=== PATIENT | female | born 1960 | race African-American/Black ===

== ENCOUNTER 2016-11-06 08:53 | Day surgery (SDC) | payer OTHER ==
[2016-11-05 15:51] VITALS: BMI 34.9
[~2016-11-06 08:53] MED LIST: BUPIVACAINE HCL/PF 0.5% (5MG/ML) 10 ML VIAL IJ ONE
[2016-11-06] MEDS ORDERED: SUCCINYLCHOLINE CHLORIDE 200 MG/10 ML VIAL ONE (09:35)
[2016-11-06] MEDS ORDERED: PROPOFOL 20 ML ONE ×2 (09:35)
[2016-11-06] MEDS ORDERED: MIDAZOLAM HCL 2 MG/2 ML SINGLE DOSE VIAL ONE (09:36)
[2016-11-06] MEDS ORDERED: ROCURONIUM BROMIDE 50 MG/5 ML VIAL ONE ×2 (09:36→11:15)
[2016-11-06] MEDS ORDERED: LIDOCAINE HCL/PF 2% SDV 5ML VIAL ONE (09:37)
--- NOTE | 2016-11-06 10:03 | HP ---
History & Physical Update - History History: No Change - Physical Physical: No Change - Assessment Assessment: No Change - Plan Plan: No Change
[2016-11-06] MEDS ORDERED: ceFAZolin SODIUM 1 GM VIAL ONE (10:41)
[2016-11-06] MEDS ORDERED: ceFAZolin SODIUM 1 GM VIAL IVPB ONE (10:47)
[2016-11-06] MEDS ORDERED: ePHEDrine SULFATE 50 MG/1 ML AMPULE ONE (11:00)
[2016-11-06] MEDS ORDERED: GLYCOPYRROLATE 0.2 MG/1 ML VIAL ONE ×2 (11:02→13:06)
[2016-11-06] MEDS ORDERED: DEXAMETHASONE SOD PHOSPHATE 4 MG/1 ML VIAL ONE (11:13)
[2016-11-06] MEDS ORDERED: BUPIVACAINE HCL/PF 0.5% (5MG/ML) 10 ML VIAL IJ ONE (12:45)
[2016-11-06] MEDS ORDERED: NEOSTIGMINE METHYLSULFATE 0.5 MG/ML - 10 ML MDV ONE (13:04)
[2016-11-06] MEDS ORDERED: KETOROLAC TROMETHAMINE 30 MG/1 ML VIAL ONE (13:06)
--- NOTE | 2016-11-06 13:34 | OP ---
Operative Note - Note: Operative Date: 11/06/16 Pre-Operative Diagnosis: Multiple incisional hernias (2) Operation: Robotic PATY, multiple incisional hernia repair with mesh Findings: umbilical hernia and epigastric incisional hernia with Citizen [place] cheese appearance Post-Operative Diagnosis: Other (dense intraabdominal adhesions) Surgeon: Brian Calvert Cricket Coach: Jody Jung Anesthesia: General Operative Report Dictated: Yes
[2016-11-06] MEDS ORDERED: ONDANSETRON 4 MG/2 ML VIAL IVPB ONE (13:35)
--- NOTE | 2016-11-06 13:49 | SURG ---
Surgery Sand Slinger Operator Note Sand Slinger Operator: Jody Jung PA-C Date of Service: 11/06/16 Diagnosis: Multiple incisional hernias (2) Procedure: Robotic PATY, multiple incisional hernia repair with mesh I was present for the entirety of the operative procedure. For further detail, please refer to operative report. Visit type - Case Type Case Type: Scheduled Admission - Emergency Emergency Visit: No - New patient This patient is new to me today: Yes Date on this admission: 11/06/16 - Critical Care Critical Care patient: No
[2016-11-06] MEDS ORDERED: ONDANSETRON 4 MG/2 ML VIAL ONE (13:57)
[2016-11-06] MEDS ORDERED: PROMETHAZINE HCL 25 MG/1 ML VIAL IVPUSH PRN (14:29)
[2016-11-06] MEDS ORDERED: ACETAMINOPHEN 1000 MG/100 ML VIAL (NON FORMULARY) IVPB ONE ×2 (14:29→14:50)
[2016-11-06] MEDS ORDERED: oxyCODONE HCL 5 MG TABLET PO PRN ×2 (14:29→19:22)
[2016-11-06] MEDS ORDERED: ONDANSETRON 4 MG/2 ML VIAL IVPUSH PRN (14:29)
[2016-11-06] MEDS ORDERED: LACTATED RINGERS SOLUTION 1,000 ML IV SCH ×2 (14:30→19:30)
[2016-11-06] MEDS ORDERED: PROMETHAZINE HCL 25 MG/1 ML VIAL IVPB ONE (14:35)
[2016-11-06] MEDS ORDERED: oxyCODONE HCL 5 MG TABLET ONE (17:30)
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
[2016-11-06] MEDS ORDERED: PATIENT'S OWN MEDICATION (NON-FORMULARY) (Olopatadine Hcl [Pataday] 2.5 ML) OP PRN (19:24)
[2016-11-06] MEDS: ACETAMINOPHEN 325 MG TABLET (FP) PO PRN (20:34)
[2016-11-06] MEDS: GABAPENTIN 300 MG CAPSULE (FP) PO SCH (21:52)
[2016-11-06] MEDS: INSULIN SLIDING SCALE (NOVOLOG) 1 VIAL SQ SCH (21:53)
[2016-11-06] MEDS ORDERED: ATORVASTATIN CA 40 MG TABLET (FP) PO SCH (22:00)
[2016-11-07] MEDS: oxyCODONE HCL 5 MG TABLET PO PRN ×2 (01:11→06:30)
[2016-11-07] MEDS: ACETAMINOPHEN 325 MG TABLET (FP) PO PRN ×2 (01:12→06:30)
[2016-11-07] MEDS: INSULIN SLIDING SCALE (NOVOLOG) 1 VIAL SQ SCH (06:29)
[2016-11-07] MEDS: GABAPENTIN 300 MG CAPSULE (FP) PO SCH (06:29)
[2016-11-07] MEDS ORDERED: metFORMIN HCL 500 MG TABLET (FP) PO SCH (07:00)
[2016-11-07] MEDS ORDERED: glyBURIDE 2.5 MG TABLET (FP) PO SCH (07:00)
[2016-11-07 07:11] VITALS: BP 119/64; PULSE 66; TEMP 97.5
--- NOTE | 2016-11-07 08:39 | PN ---
Progress Note (short form) - Note Progress Note: POD #1 s/p Robotic PATY, multiple incisional hernia repair with mesh. Pt admitted to satelite status due to case ending late and pain management. This morning found pt sitting on edge of bed and ready to go home. States she feels good. Pain managed well via prn meds. She's oob and ambulates with a cane. Voiding spontaneously. Wearing her abd binder as instructed. Passing flatus. Tolerating PO diet. AVSS. Afebrile. Gen: alert. nad. Pulm: cta b/l anteriorly Cor: rrr Abd: obese. all ports intact. no hematoma. Problem List - Problems (1) Incisional hernia Assessment/Plan: POD #1 s/p Robotic PATY, multiple incisional hernia repair with mesh Narcotic script escribed to pt's pharmacy of choice AFTER checking [facility]. Pt to f/u with Dr. Calvert in 7-10 days. Cleared for dc home. Code(s): K43.2 - INCISIONAL HERNIA WITHOUT OBSTRUCTION OR GANGRENE
[2016-11-07] MEDS ORDERED: sitaGLIPtin PHOSPHATE 100 MG TABLET (FP) PO SCH (10:00)
[2016-11-07] MEDS ORDERED: amLODIPine BESYLATE 5 MG TABLET (FP) PO SCH (10:00)
[2016-11-07] MEDS ORDERED: PANTOPRAZOLE 40 MG TABLET (FP) PO SCH (10:00)
[2016-11-07] MEDS ORDERED: HYDROCHLOROTHIAZIDE 25 MG TABLET (FP) PO SCH (10:00)
[2016-11-07] MEDS ORDERED: LOSARTAN POTASSIUM 25 MG TABLET PO SCH (10:00)
[2016-11-07] MEDS ORDERED: METFORMIN HCL PO SCH (10:00)
[2016-11-07] MEDS ORDERED: VITAMIN B COMPLEX W/C COMBO TABLET (FP) PO SCH (10:00)
[2016-11-07] MEDS ORDERED: [UNRECOGNIZED DRUG - OTHER] PO SCH (10:00)
[2016-11-07] MEDS ORDERED: GLYBURIDE PO SCH (10:00)
[2016-11-07] MEDS ORDERED: INSULIN GLARGINE HUM REC ANLOG 55 UNIT SQ SCH (10:00)
== END 2016-11-07 09:21 | disposition home or self-care (01) ==
LOC: JASU-SURG 08:53 → J8W 17:55 → JASU-SURG 11-07 09:21
PROVIDERS: ATTEND Surgery
PROC: 8E0W4CZ Robotic Assisted Procedure of Trunk Region, Percutaneous Endoscopic Approach (ICD-10-PCS; 2016-11-06)
PROC: 0WUF4JZ Supplement Abdominal Wall with Synthetic Substitute, Percutaneous Endoscopic Approach (ICD-10-PCS; principal; 2016-11-06 11:00)
DX: K43.2 Incisional hernia without obstruction or gangrene (principal)
CPT/HCPCS: 49654; S2900; 94760

== ENCOUNTER 2016-11-27 10:10 | Emergency (ER) | payer OTHER ==
[2016-11-27 10:19] VITALS: TEMP 97.7; BMI 34.9
--- NOTE | 2016-11-27 14:00 | PDOC ---
History of Present Illness - History of Present Illness Initial Comments: 11/27/16 14:18 The patient is a 56 year old female, with a significant past medical history of hypertension, hyperlipidemia, diabetes, who presents to the emergency department for intermittent abdominal pain and vomiting s/p robotic laparoscopic multiple incisional hernia with mesh on 11/06/16. She states she has had increased episodes of emesis for the past 4 days. She reports 4 episodes of emesis since being in the ED today. She denies any blood in her emesis. She reports her last normal BM was at 5AM this morning. She denies hematochezia. She denies chest pain, shortness of breath, headache and dizziness. She denies fever, diarrhea and constipation. She denies dysuria, frequency, urgency and hematuria. Allergies: enapril, metoprolol, pneumococcal vaccine Past surgical history: cholecystectomy, hernia repairs (11/06/16) Social history: denies toxic habits. Lives home with Nurse aide. PCP - Dr. Parish Godinez Surgeon - Dr. Brian Calvert <Merry Landon - Last Filed: 11/27/16 14:18> - General History Source: Patient, Old Records Exam Limitations: No Limitations <Molly Ramirez - Last Filed: 11/29/16 01:32> - General Chief Complaint: Pain Stated Complaint: VOMITING, DIZZINESS Time Seen by Provider: 11/27/16 13:32 Past History <Merry Landon - Last Filed: 11/27/16 14:18> - Past Medical History Anemia: Yes (in past) Asthma: No Cancer: No Cardiac Disorders: No CVA: No COPD: No CHF: No Dementia: No Diabetes: Yes (type 1 2007) GI Disorders: Yes (reflux) Disorders: No HTN: Yes Hypercholesterolemia: Yes Seizures: No Thyroid Disease: No - Surgical History Abdominal Surgery: Yes (Hernia Repair) Appendectomy: Yes Cardiac Surgery: No Cholecystectomy: Yes Lung Surgery: No Neurologic Surgery: No Orthopedic Surgery: No - Psycho/Social/Smoking Cessation Hx Suicidal Ideation: No Smoking History: Never smoked Have you smoked in the past 12 months: No Information on smoking cessation initiated: No Hx Alcohol Use: No Drug/Substance Use Hx: No Substance Use Type: None Hx Substance Use Treatment: No <Molly Ramirez - Last Filed: 11/29/16 01:32> - Past Medical History Allergies/Adverse Reactions: Allergies Allergy/AdvReac Type Severity Reaction Status Date / Time enalapril Allergy Hives Verified 11/27/16 10:19 metoprolol Allergy Hives Verified 11/27/16 10:19 pneumococcal vaccine Allergy Hives Verified 11/27/16 10:19 tetanus and diphtheria Allergy Hives Verified 11/27/16 10:19 toxoids Home Medications: Ambulatory Orders Amlodipine Besylate [Norvasc -] 5 mg PO DAILY 05/14/16 Atorvastatin Ca [Lipitor] 40 mg PO HS 05/14/16 Gabapentin 800 mg PO TID 05/14/16 Glyburide/Metformin HCl [Glucovance 2.5-500 mg Tablet] 1 each PO BID 05/14/16 Hydrochlorothiazide [Hctz -] 25 mg PO DAILY 05/14/16 Losartan Potassium [Cozaar -] 25 mg PO DAILY 05/14/16 Olopatadine HCl [Pataday] 2.5 ml OP DAILY PRN 05/14/16 Omeprazole 40 mg PO DAILY 05/14/16 Sitagliptin Phosphate [Januvia] 100 mg PO DAILY 05/14/16 Vitamin B Complex [B Complex] 1 tab PO DAILY 05/14/16 Review of Systems - Review of Systems Able to Perform ROS?: Yes Comments:: 11/27/16 13:59 GENERAL/CONSTITUTIONAL: (+) Chills. No fever. No weakness. HEAD, EYES, EARS, NOSE AND THROAT: No change in vision. No ear pain or discharge. No sore throat. CARDIOVASCULAR: No chest pain or shortness of breath. RESPIRATORY: No cough, wheezing, or hemoptysis. GASTROINTESTINAL: (+) abdominal pain, nausea, vomiting, No diarrhea or constipation. GENITOURINARY: No dysuria, frequency, or change in urination. MUSCULOSKELETAL: No joint or muscle swelling or pain. No neck or back pain. SKIN: No rash NEUROLOGIC: No headache, vertigo, loss of consciousness, or change in strength/ sensation. ENDOCRINE: No increased thirst. No abnormal weight change. HEMATOLOGIC/LYMPHATIC: No anemia, easy bleeding, or history of blood clots. ALLERGIC/IMMUNOLOGIC: No hives or skin allergy. <Merry Landon - Last Filed: 11/27/16 14:18> *Physical Exam - Vital Signs Last Vital Signs Temp Pulse Resp BP Pulse Ox 97.7 F 93 H 18 160/95 98 11/27/16 10:15 11/27/16 10:15 11/27/16 10:15 11/27/16 10:15 11/27/16 10:15 - Physical Exam Comments: 11/27/16 14:01 GENERAL: Awake, alert, and fully oriented, in no acute distress HEAD: No signs of trauma EYES: PERRLA, EOMI, sclera anicteric, conjunctiva clear ENT: Auricles normal inspection, hearing grossly normal, nares patent, oropharynx clear without exudates. Moist mucosa NECK: Normal ROM, supple, no lymphadenopathy, JVD, or masses LUNGS: Breath sounds equal, clear to auscultation bilaterally. No wheezes, and no crackles HEART: Regular rate and rhythm, normal S1 and S2, no murmurs, rubs or gallops ABDOMEN: (+) Obese. mild diffuse tenderness to palpation worse in RUQ and RLQ. Soft, normoactive bowel sounds. No guarding, no rebound. No masses EXTREMITIES: Normal range of motion, no edema. No clubbing or cyanosis. No cords, erythema, or tenderness NEUROLOGICAL: Cranial nerves II through XII grossly intact. Normal speech, normal gait SKIN: Warm, Dry, normal turgor, no rashes or lesions noted. <Merry Landon - Last Filed: 11/27/16 14:18> - Vital Signs Last Vital Signs Temp Pulse Resp BP Pulse Ox 97.7 F 93 H 18 160/95 98 11/27/16 10:15 11/27/16 10:15 11/27/16 10:15 11/27/16 10:15 11/27/16 10:15 <Molly Ramirez - Last Filed: 11/29/16 01:32> ED Treatment Course - LABORATORY CBC & Chemistry Diagram: 11/27/16 14:15 11/27/16 18:49 <Molly Ramirez - Last Filed: 11/29/16 01:32> Medical Decision Making - Medical Decision Making 11/27/16 14:11 56-year-old female with history of hypertension, diabetes, hyperlipidemia and multiple abdominal surgeries for hernia repairs presents to the emergency Department with complaints of diffuse abdominal pain as well as nausea and vomiting since yesterday. Differential diagnosis includes but is not limited to : Small bowel obstruction, pancreatitis, gallbladder disease, gastritis, dehydration, electrolyte abnormality, toxic/metabolic derangement, DKA. Plan: 1. Labs 2. EKG 3. IV fluids for hydration 4. Antiemetics 5. Pain management 6. Abdominal imaging 7. Observe and reevaluate <Molly Ramirez - Last Filed: 11/29/16 01:32> *DC/Admit/Observation/Transfer - Attestations Scribe Attestion: 11/27/16 14:05 Documentation prepared by Merry Landon, acting as medical records coder for Molly Ramirez MD, <Merry Landon - Last Filed: 11/27/16 14:18> - Discharge Dispostion Admit: No - Attestations Physician Attestion: 11/27/16 14:12 I, Dr. Molly Ramirez, attest that the scribes documentation that appears above has been prepared under my direction and personally reviewed by me in its entirety. I confirmed that the note above accurately reflects all work, treatment, procedures, and medical decision-making performed by me. <Molly Ramirez - Last Filed: 11/29/16 01:32> Diagnosis at time of Disposition: Hematoma of rectus sheath Qualifiers: Encounter type: initial encounter Qualified Code(s): S30.1XXA - Contusion of abdominal wall, initial encounter - Discharge Dispostion Disposition: HOME Condition at time of disposition: Stable - Referrals Referrals: Ralph Godinez [Primary Care Provider] - Brian Calvert MD [Staff Physician] - - Patient Instructions Printed Discharge Instructions: DI for Abdominal Pain-Adult, DI for Hematoma ( Bruise) Additional Instructions: Please call Dr Brian Calvert's office tomorrow for followup visit
[2016-11-27] MEDS ORDERED: SODIUM CHLORIDE 1,000 ML IV STA (14:01)
[2016-11-27] MEDS ORDERED: ONDANSETRON 4 MG/2 ML VIAL IVPUSH ONE (14:01)
[2016-11-27] MEDS ORDERED: ONDANSETRON 4 MG/2 ML VIAL ONE (14:08)
[2016-11-27 14:25] LABS: BASOPHIL 1.3 % (0-2.0); EOSINOPHIL 2.2 % (0-4.5); MCH 24.5 pg (25.7-33.7); MCHC 31.7 g/dl (32.0-36.0); MEAN CELL VOLUME 77.4 fl (80-96); MEAN PLT VOLUME 7.2 fl (7.5-11.1); NEUTROPHILS 48.3 % (42.8-82.8); PLATELET COUNT 408 K/MM3 (134-434); RDW 16.7 % (11.6-15.6); WHITE BLOOD COUNT 9.5 K/mm3 (4.0-10.0)
[2016-11-27 14:35] LABS: URINE APPEARANCE CLEAR; URINE BILIRUBIN NEGATIVE (NEGATIVE); URINE BLOOD NEGATIVE (NEGATIVE); URINE COLOR LTYELLOW; URINE GLUCOSE (UA) NEGATIVE (NEGATIVE); URINE KETONE NEGATIVE (NEGATIVE); URINE LEUK ESTERASE NEGATIVE (NEGATIVE); URINE NITRITE NEGATIVE (NEGATIVE); URINE UROBILINOGEN NEGATIVE E.U./dl (0.2-1.0)
[2016-11-27 14:36] LABS: URINE PROTEIN 1+ (NEGATIVE)
[2016-11-27 14:40] LABS: URINE RBC <1 /hpf (0-3); URINE WBC 1 /hpf (3-5)
--- NOTE | 2016-11-27 17:02 | EKG ---
Test Reason : Blood Pressure : / mmHG Vent. Rate : 070 BPM Atrial Rate : 070 BPM P-R Int : 188 ms QRS Dur : 080 ms QT Int : 410 ms P-R-T Axes : 026 -31 006 degrees QTc Int : 442 ms NORMAL SINUS RHYTHM LEFT AXIS DEVIATION ABNORMAL ECG WHEN COMPARED WITH ECG OF 01-MAY-2016 16:18, T WAVE VARIATION Confirmed by JUAN CORTES MD ([id number]) on 11/27/2016 5:01:40 PM Referred By: Confirmed By:JUAN CORTES MD
[2016-11-27 19:27] LABS: ALBUMIN 3.7 g/dl (3.4-5.0); ANION GAP 12 (8-16); CALCIUM 9.1 mg/dL (8.5-10.1); CO2 25 mmol/L (21-32); COCKROFT - GAULT 102.4505; CREATININE 0.9 mg/dL (0.55-1.02); MAGNESIUM 1.8 mg/dL (1.8-2.4); PHOSPHOROUS 3.4 mg/dL (2.5-4.9); SGOT/AST 25 U/L (15-37); SGPT/ALT 33 U/L (12-78)
[2016-11-27 19:29] LABS: ALK PHOS 86 U/L (45-117); BILIRUBIN,TOTAL 0.2 mg/dL (0.2-1.0); TOT PROT 7.4 g/dl (6.4-8.2); TROPONIN I < 0.02 ng/ml (0.00-0.05)
[2016-11-27 19:35] LABS: GLUCOSE,RANDOM 48 mg/dL (74-106)
[2016-11-27] MEDS ORDERED: DEXTROSE 50%-WATER - 25 GM/50 ML VIAL ONE (19:38)
--- NOTE | 2016-11-27 19:42 | PDOC ---
*Physical Exam - Vital Signs Last Vital Signs Temp Pulse Resp BP Pulse Ox 97.7 F 93 H 18 160/95 98 11/27/16 10:15 11/27/16 10:15 11/27/16 10:15 11/27/16 10:15 11/27/16 10:15 ED Treatment Course - LABORATORY CBC & Chemistry Diagram: 11/27/16 14:15 11/27/16 18:49 - ADDITIONAL ORDERS Additional order review: Laboratory Results 11/27/16 11/27/16 18:49 14:21 Sodium 142 Potassium 3.9 Chloride 105 Carbon Dioxide 25 Anion Gap 12 BUN 10 D Creatinine 0.9 Creat Clearance w eGFR > 60 Random Glucose 48 L* D Calcium 9.1 Phosphorus 3.4 Magnesium 1.8 Total Bilirubin 0.2 D AST 25 ALT 33 D Alkaline Phosphatase 86 Creatine Kinase 132 Troponin I < 0.02 Total Protein 7.4 Albumin 3.7 Lipase 197 Urine Color Ltyellow Urine Appearance Clear Urine pH 5.0 Ur Specific [place] 1.015 Urine Protein 1+ H Urine Glucose (UA) Negative Urine Ketones Negative Urine Blood Negative Urine Nitrite Negative Urine Bilirubin Negative Urine Urobilinogen Negative Ur Leukocyte Esterase Negative Urine RBC <1 Urine WBC 1 Ur Epithelial Cells Rare 11/27/16 14:15 RBC 4.55 MCV 77.4 L MCHC 31.7 L RDW 16.7 H MPV 7.2 L Neutrophils % 48.3 Lymphocytes % 43.0 H D Monocytes % 5.2 Eosinophils % 2.2 Basophils % 1.3 - Medications Given in the ED: ED Medications Discontinued Medications Generic Name Dose Route Start Last Admin Trade Name Freq PRN Reason Stop Dose Admin Sodium Chloride 1,000 mls @ 1,000 mls/hr 11/27/16 14:01 11/27/16 14:16 Normal Saline - IV 11/27/16 15:00 1,000 mls/hr ASDIR STA Administration Ondansetron HCl 4 mg 11/27/16 14:01 11/27/16 14:16 Zofran Injection IVPUSH 11/27/16 14:02 4 mg ONCE ONE Administration Medical Decision Making - Medical Decision Making 11/27/16 19:41 I reviewed her labs. It is noted her glucose is 48, although she is conversant and alert. She will be given some orange juice before she goes home CAT scan of abdomen and pelvis did show an abdominal rectus sheath hematoma. There was no evidence of fluid collection, no abscesses, no small bowel obstruction Case is discussed with the patient's surgeon, Dr. Brian Calvert who see the patient in his office later this week. He recommended patient go home Urinalysis is negative -Electrolytes are within normal limits. Liver function tests essentially unremarkable Impression rectus sheath hematoma following surgery 11/28/16 02:51 *DC/Admit/Observation/Transfer Diagnosis at time of Disposition: Hematoma of rectus sheath Qualifiers: Encounter type: initial encounter Qualified Code(s): S30.1XXA - Contusion of abdominal wall, initial encounter - Discharge Dispostion Disposition: HOME Condition at time of disposition: Stable - Referrals Referrals: Ralph Godinez [Primary Care Provider] - Brian Calvert MD [Staff Physician] - - Patient Instructions Printed Discharge Instructions: DI for Hematoma (Bruise), DI for Abdominal Pain -Adult Additional Instructions: Please call Dr Brian Calvert's office tomorrow for followup visit - Post Discharge Activity
[2016-11-27] MEDS ORDERED: ACETAMINOPHEN 500 MG TABLET (FP) PO ONE (20:38)
[2016-11-27 20:40] VITALS: BP 156/90; PULSE 78
[2016-11-27] MEDS ORDERED: ACETAMINOPHEN 325 MG TABLET (FP) ONE (20:40)
== END 2016-11-27 20:46 | disposition home or self-care (01) ==
LOC: JER 10:10
PROC: 3E033GC Introduction of Other Therapeutic Substance into Peripheral Vein, Percutaneous Approach (ICD-10-PCS; principal; 2016-11-27)
DX: S30.1XXA Contusion of abdominal wall, initial encounter (principal); Z98.890 Other specified postprocedural states; I10 Essential (primary) hypertension; E10.9 Type 1 diabetes mellitus without complications; Z79.4 Long term (current) use of insulin; E78.5 Hyperlipidemia, unspecified; E78.00 Pure hypercholesterolemia, unspecified; K21.9 Gastro-esophageal reflux disease without esophagitis
CPT/HCPCS: 36415; 71010-TC; 74176-TC; 80053; 81003; 81015; 82550; 83690; 83735; 84100; 84484; 85025; 93005; 93010; 96374; 99284-25

== ENCOUNTER 2017-09-30 05:40 | Day surgery (SDC) | payer OTHER ==
[2017-09-16 14:21] VITALS: BMI 34.9
[~2017-09-30 05:40] MED LIST changes: +BACITRACIN 15 GM TUBE TOPICAL OINTMENT TP ONE; -BUPIVACAINE HCL/PF 0.5% (5MG/ML) 10 ML VIAL IJ ONE; +BUPIVACAINE HCL/PF 0.5% (5MG/ML) 10 ML VIAL NR ONE
[2017-09-30] MEDS ORDERED: BUPIVACAINE HCL/PF 0.5% (5MG/ML) 10 ML VIAL ONE (07:18)
[2017-09-30] MEDS ORDERED: THROMBIN (BOVINE) 5,000 UNIT VIAL TP ONE ×2 (07:18→09:04)
[2017-09-30] MEDS ORDERED: MIDAZOLAM HCL 2 MG/2 ML SINGLE DOSE VIAL ONE (08:06)
[2017-09-30] MEDS ORDERED: PROMETHAZINE HCL 25 MG/1 ML VIAL IVPUSH PRN (08:13)
[2017-09-30] MEDS ORDERED: ONDANSETRON 4 MG/2 ML VIAL IVPUSH PRN (08:13)
[2017-09-30] MEDS ORDERED: oxyCODONE HCL 5 MG TABLET PO PRN (08:13)
[2017-09-30] MEDS ORDERED: LACTATED RINGERS SOLUTION 1,000 ML IV SCH (08:15)
[2017-09-30] MEDS ORDERED: SUCCINYLCHOLINE CHLORIDE 200 MG/10 ML VIAL ONE (08:20)
[2017-09-30] MEDS ORDERED: ROCURONIUM BROMIDE 50 MG/5 ML VIAL ONE (08:20)
[2017-09-30] MEDS ORDERED: PROPOFOL 20 ML ONE ×2 (08:20)
[2017-09-30] MEDS ORDERED: ceFAZolin SODIUM 1 GM VIAL IVPB ONE (08:30)
[2017-09-30] MEDS ORDERED: BACITRACIN 50,000 UNITS VIAL TP ONE (09:04)
[2017-09-30] MEDS ORDERED: ePHEDrine SULFATE 50 MG/1 ML AMPULE ONE (09:26)
[2017-09-30] MEDS ORDERED: BACITRACIN 15 GM TUBE TOPICAL OINTMENT ONE (10:02)
[2017-09-30] MEDS ORDERED: NEOSTIGMINE METHYLSULFATE 0.5 MG/ML - 10 ML MDV ONE (10:11)
[2017-09-30] MEDS ORDERED: BUPIVACAINE HCL/PF 0.5% (5MG/ML) 10 ML VIAL NR ONE (10:15)
[2017-09-30] MEDS ORDERED: BENZOIN/ALOE VERA/STORAX/TOLU 58 ML BOTTLE ONE (10:22)
[2017-09-30] MEDS ORDERED: BACITRACIN 15 GM TUBE TOPICAL OINTMENT TP ONE (10:25)
--- NOTE | 2017-09-30 10:33 | OP ---
Operative Note - Note: Operative Date: 09/30/17 Pre-Operative Diagnosis: chronic lumbar radiculopathy R > L Operation: R partial T 10 laminectomy for placement of epidural paddle electrode from [employer] and non--rechargeable generator in R buttock region Findings: mild epidural fibrosis Implants: Macias 60 mm paddle electroide Penta; Proclaim 7 Elite generator Post-Operative Diagnosis: Same as Pre-op Surgeon: Abdi Crocker Anesthesiologist/JAVA TECHNICAL MANAGER: Bhumika Werner MD Anesthesia: General Estimated Blood Loss (mls): 25 Operative Report Dictated: Yes
[2017-09-30] MEDS ORDERED: HYDROmorphone HCL CARPU-JECT 1 MG/1 ML DISP.SYRIN IVPUSH PRN (10:36)
[2017-09-30] MEDS ORDERED: D5-1/2NS+20 MEQ KCL - 20 MEQ/1,000 ML INFUS.BAG IV SCH (10:45)
--- NOTE | 2017-09-30 11:07 | PN ---
Progress Note (short form) - Note Progress Note: NEUROSURGERY In PACU AF, VSS; O2 sat 100% Some incisional pain mostly right sided as expected PE: A/A CV- RR; Lungs- CTA; Abd- obese, benign; Ext- no sign of DVT CN- intact; Motor- 4+-5 B UE/LE; Sensation- intact LT; DTR- hyporeflexia B Dressings C/D/I Pain meds prn Plan d/c hoe later SCS preliminary programs in place D/C, wound, and f/u instructions given
[2017-09-30] MEDS ORDERED: oxyCODONE HCL 5 MG TABLET ONE (11:15)
[2017-09-30] MEDS ORDERED: ONDANSETRON 4 MG/2 ML VIAL ONE (11:24)
[2017-09-30 11:47] VITALS: TEMP 97.9
[2017-09-30 14:20] VITALS: BP 147/72; PULSE 80
--- NOTE | 2017-10-01 12:03 | OP ---
DATE OF OPERATION: 09/30/2017 ATTENDING SURGEON: Abdi Crocker MD SALON SALES CONSULTANT: Epi Crisostomo MD ANESTHESIA: General endotracheal. ANESTHESIOLOGIST: Bhumika Werner MD PROCEDURE: 1. Right T10 and partial laminectomy for placement of epidural paddle electrode (26849) (Macias Penta 4 x 20 electrode). 2. Placement of generator in the right buttock (00890) (Macias Proclaim 7 Elite non-rechargeable generator). 3. Intraoperative programming first hour (25657). 4. Intraoperative fluoroscopy for localization and placement of epidural paddle electrode (28868-60). ESTIMATED BLOOD LOSS: Was 25 mL. FINDINGS: Mild epidural fibrosis. INDICATIONS: The patient is a 57-year-old female with a history of lumbar laminectomy L4-5 and L5-S1 on the left who complains of increasing right-sided lumbar radiculopathy. She has undergone extensive conservative treatment without significant relief of her symptoms. She underwent a permanent spinal cord stimulator implant, which gave her greater than 50% of reduction in her overall pain. She is here for her permanent spinal cord stimulator implant. The risks of procedure include but are not limited to bleeding, infection, dural tear with CSF leak, neurological injury, increased thromboembolic risk, and other risks of general anesthesia as well as implant migration requiring revision. The patient understands the indication for the procedure. After risks, benefits, and alternative treatments for her condition were discussed, she wished to proceed. No guarantees given for a favorable outcome. PROCEDURE IN DETAIL: After the patient was taken to the operating room, she was placed in supine position. After general anesthesia was induced and appropriate monitoring lines were placed, she was turned in a prone position on a Justin frame. All pressure points were checked and padded. Right buttock region was cleaned with alcohol and prepped with Betadine. Fluoroscope was brought into the AP position and planned incision in the thoracic spine at the bottom of T10. Approximately a 2- inch incision was planned. After the patient was sterilely prepped and draped, the skin incision was opened with a No. 10 blade in the lower thoracic region. Subperiosteal dissection was carried out with periosteal elevator and monopolar electrocautery. A fairly deep exposure was encountered. A self-retaining retractor was inserted. Fluoroscope was sterilely draped and brought into the AP position and localized the exposure of T10 lamina. At this point, partial laminectomy in the central spinal canal as well as a right-sided partial T10 laminectomy was carried out with high -speed pneumatic drill, angled curette, and Kerrison rongeur. The underlying ligamentum flavum was dissected free with angled curette with the help of Kerrison rongeur. Dental tool was used to palpate the epidural space. A mild degree of epidural fibrosis was encountered. Loupe magnification was utilized. An BioCatch Spine Penta paddle electrode was placed from a central/right-sided approach with slowly advancing the top of the electrode towards the midline near T7-8 disk space. The electrode was placed more right-sided as the patient has predominantly right-sided symptoms. The wound was irrigated with antibiotic-containing irrigation. There was no CSF leak at any one point in time. At this point, 2 anchors were applied, and they were secured with 2-0 silk sutures. The right buttock incision was then opened at this time , and the pocket was created with blunt dissection. Wounds were irrigated with antibiotic-containing irrigation. The trocar was used to create a path for thoracic and lumbar through the right buttock incision with a plastic straw to pass the leads. It was then cleaned and connected to the permanent nonrechargeable Proclaim 7 Elite non-rechargeable generator. The torque wrench was used to secure the leads. Impedance was checked repeatedly and resulted in 500-1000 range. The excess wire was then coiled behind the generator and tucked into the right buttock incision after it was irrigated with antibiotic-containing irrigation. At this point, fascia was closed with 0 Vicryl suture and subcutaneous fascia was closed with 3-0 Vicryl suture at both incisions. The skin was closed with 4-0 Vicryl running subcuticular suture. Steri-Strips and a sterile occlusive dressing were applied. The patient tolerated the procedure well and was turned back to supine position and extubated. She received 1 dose of 2 g of Ancef prior to the incision. All needle, instrument, and lap counts were correct. Postoperative instructions were given to the patient in recovery room. The initial programming was started, and impedance was checked throughout the procedure. Sheila [id number]
== END 2017-09-30 14:21 | disposition home or self-care (01) ==
LOC: JASU-SURG 05:40
PROVIDERS: ATTEND Neurological Surgery
PROC: 0JH70DZ Insertion of Multiple Array Stimulator Generator into Back Subcutaneous Tissue and Fascia, Open Approach (ICD-10-PCS; 2017-09-30)
PROC: 00HU0MZ Insertion of Neurostimulator Lead into Spinal Canal, Open Approach (ICD-10-PCS; principal; 2017-09-30 08:00)
PROC: 4B00XVZ Measurement of Central Nervous Stimulator, External Approach (ICD-10-PCS; 2017-09-30 08:00)
DX: M54.16 Radiculopathy, lumbar region (principal); M96.1 Postlaminectomy syndrome, not elsewhere classified
CPT/HCPCS: 63655; 63685; 95972; C1778; L8679; 76000-TC-FY; 82962; 86850; 86900; 86901; 94760